=== PATIENT | female | born 1955 | race Two or more races ===

== ENCOUNTER 2020-09-12 12:04 | Emergency (ER) | payer BC, OTHER ==
[~2020-09-12] VITALS: Ht 160 cm; Wt 75.0 kg
[2020-09-12] MEDS ORDERED: ACETAMINOPHEN 325MG TABLET PO ONE (12:15)
[2020-09-12] MEDS ORDERED: DEXAMETHASONE 10 MG/ML VIAL IM ONE (12:15)
[2020-09-12] MEDS ORDERED: LIDOCAINE 5% PATCH TOP SCH (12:15)
[2020-09-12] MEDS ORDERED: IBUPROFEN 600MG TABLET PO ONE (12:15)
[2020-09-12 13:28] VITALS: BP 151/69
== END 2020-09-12 15:12 | disposition home or self-care (01) ==
LOC: ER 12:04
DX: S43.492A Other sprain of left shoulder joint, initial encounter (principal); W01.0XXA Fall on same level from slipping, tripping and stumbling without subsequent striking against object, initial encounter; Y93.89 Activity, other specified; Y92.89 Other specified places as the place of occurrence of the external cause; Y99.8 Other external cause status; I10 Essential (primary) hypertension
CPT/HCPCS: 29240; 73030; 96372; 99284; J1100

== ENCOUNTER 2023-09-29 08:12 | Emergency (ER) | payer MEDICARE, OTHER ==
[~2023-09-29] VITALS: Ht 167.6 cm; Wt 78.0 kg
[2023-09-29 08:19] VITALS: TEMP 98.5; O2SAT 99
[2023-09-29] MEDS ORDERED: LACTATED RINGERS 1,000 ML IV SCH (09:00)
[2023-09-29 10:03] LABS: BASOPHILS % 0.7 % (0.0-2.0); EOSINOPHILS % 0.1 % (0.0-5.0); HEMOGLOBIN. 14.6 g/dL (12.0-16.0); LYMPHOCYTES % 23.6 % (20.0-50.0); MEAN CORPUSCULAR HEMOGLOBIN 27.3 pg (28.0-32.0); MEAN CORPUSCULAR HGB CONC 33.1 g/dL (31.0-37.0); MEAN CORPUSCULAR VOLUME 82.2 fL (81.0-99.0); MONOCYTES % 8.2 % (2.0-8.0); NEUTROPHILS % 67.4 % (40.0-76.0); PLATELET 269 x1000/uL (130-400); RED BLOOD CELL COUNT 5.36 mill/uL (4.2-5.4); RED CELL DISTRIBUTION WIDTH 14.6 % (11.6-14.6); WHITE BLOOD COUNT 9.1 x1000/uL (4.5-11.0)
[2023-09-29 10:28] LABS: ALANINE AMINOTRANSFERASE 10 IU/L (10-49); ALBUMIN 4.3 g/dL (3.2-4.8); ASPARTATE AMINOTRANSFERASE 21 IU/L (<34); BILIRUBIN TOTAL 0.6 mg/dL (0.1-1.0); CALCIUM 9.2 mg/dL (8.7-10.4); CARBON DIOXIDE 27 mEq/L (21-32); CHLORIDE 106 mEq/L (98-107); CREATININE 1.1 mg/dL (0.6-1.0); GLUCOSE 98 mg/dL (70-105); POTASSIUM 3.5 mEq/L (3.5-5.1); PROTEIN TOTAL 7.1 g/dL (6.0-8.3); SODIUM 143 mEq/L (136-145); UREA NITROGEN BLOOD 14 mg/dL (9-23)
[2023-09-29 11:18] VITALS: BP 93/56; PULSE 75; RESP 14
== END 2023-09-29 11:57 | disposition home or self-care (01) ==
LOC: ER 08:12
DX: B34.9 Viral infection, unspecified (principal); I10 Essential (primary) hypertension
CPT/HCPCS: 36415; 71045; 80053; 85025; 93005; 96360; 99285